=== PATIENT | female | born 1985 | race Caucasian/White ===

== ENCOUNTER 2017-02-06 09:05 | Emergency (ER) | payer SELFPAY ==
[~2017-02-06 09:05] MED LIST: CYCL-36 PO; FIORIC PO; GABA100C4 PO; HYDR-3129 PO; LORTA5 PO; MOBI15TA PO
[2017-02-06 09:08] VITALS: BP 155/95; PULSE 83; RESP 22; TEMP 98.5; O2SAT 98
--- NOTE | 2017-02-06 09:42 | PD ---
HPI Chief Complaint: Numbness/Tingling Time Seen by Provider: 09:23 Travel History International Travel<30 days: No Contact w/Intl Traveler<30days: No Traveled to known affect area: No History of Present Illness HPI The patient was seen and examined in the presence of the nurse. This patient has long-standing history of migraines. She gets 2-3 per week. Complains of migraine headache and has bilateral frontal throbbing. She also has nausea and had vomiting last night. No vomiting today. Denies fever or injury or thunderclap onset. It feels like her usual migraine. She also noted that she had some paresthesias in both hands and around her lips when she was hyperventilating from an anxiety attack. No muscle weakness or sensory loss. PFSH Past Medical History Arthritis: Yes Anxiety: Yes Depression: Yes Heart Rhythm Problems: Yes (Guy) Cancer: No Cardiovascular Problems: Yes (CARDIOLGY CONSULT RUNNING AMITANIKIADEN) High Cholesterol: Yes Diminished Hearing: No Genitourinary: Yes Headaches: Yes Implanted Vascular Access Dvce: No Kidney Stones: Yes Musculoskeletal: Yes (BACK INJURY) Neurologic: Yes Respiratory: No Immunizations Current: Yes Migraines: Yes ?: Not LMP: 1 WEEK : 2 Para: 1 Miscarriage: 1 : 0 Ovarian Cysts: Yes Past Surgical History Abdominal Surgery: Yes Section: Yes Gynecologic Surgery: Yes Hysterectomy: Yes Other Surgery: Yes (2011 C SECTION) Social History Alcohol Use: No Tobacco Use: Yes (07/14 PPD) Substance Use: No Allergies-Medications (Allergen,Severity, Reaction): Coded Allergies: Cipro (Verified Allergy, Severe, 02/06/17) Had to be hospitalized Red Dyes - Various (Verified Allergy, Severe, ANXIETY, 02/06/17) Reglan (Verified Allergy, Severe, Rash, 02/06/17) CAUSES ANXIETY WELL Rocephin (Verified Allergy, Severe, HIVES, 02/06/17) Imitrex (Verified Allergy, Mild, Nausea/Vomiting, 02/06/17) Uncoded Allergies: MAXALT (Adverse Reaction, Mild, BIGEMINY, 10/15/14) Reported Meds & Prescriptions Reported Meds & Active Scripts Active No Active Prescriptions or Reported Medications Review of Systems General / Constitutional: No: Fever Eyes: No: Visual changes HENT: Positive: Headaches Cardiovascular: No: Chest Pain or Discomfort Respiratory: No: Shortness of Breath Gastrointestinal: Positive: Nausea, Vomiting, No: Abdominal Pain Genitourinary: No: Dysuria Musculoskeletal: No: Pain Skin: No Rash Neurologic: Positive: Paresthesia, No: Weakness Psychiatric: No: Depression Endocrine: No: Polydipsia Hematologic/Lymphatic: No: Easy Bruising Physical Exam Narrative GENERAL: Well-nourished, well-developed patient in no apparent distress. SKIN: Focused skin assessment reveals no rash and nodules. Skin is Warm and dry. HEAD: Atraumatic. Normocephalic. EYES: Pupils equal and round. No scleral icterus. No injection or drainage. ENT: No nasal bleeding or discharge. Mucous membranes pink and moist. NECK: Trachea midline. No JVD. No meningeal signs CARDIOVASCULAR: Regular rate and rhythm. No murmur appreciated. RESPIRATORY: No accessory muscle use. Clear to auscultation. Breath sounds equal bilaterally. GASTROINTESTINAL: Abdomen soft, non-tender, nondistended. Hepatic and splenic margins not palpable. MUSCULOSKELETAL: No obvious deformities. No clubbing. No cyanosis. No edema. NEUROLOGICAL: Awake and alert. No obvious cranial nerve deficits. Motor grossly within normal limits. Normal speech. PSYCHIATRIC: Appropriate mood and affect; insight and judgment normal. Data Data Last Documented VS Vital Signs Date Time Temp Pulse Resp B/P Pulse Ox O2 Delivery O2 Flow Rate FiO2 02/06/17 09:08 98.5 83 22 155/95 98 Orders Ondansetron Inj (Zofran Inj) (02/06/17 09:45) Morphine Inj (Morphine Inj) (02/06/17 09:45) [facility] Medical Decision Making Medical Screen Exam Complete: Yes Emergency Medical Condition: Yes Medical Record Reviewed: Yes Differential Diagnosis Differential diagnosis includes migraine, tension headache, cluster headache, meningitis. Narrative Course I have reviewed the patient's electronic medical record. Patient is neurologically intact. Her presentation is not consistent with subarachnoid hemorrhage or meningitis. I gave her injection of morphine and Zofran. Prescriptions for Phenergan and Tylenol with codeine written Diagnosis Primary Impression: Migraine headache Qualified Code: G43.009 - Migraine without aura and without status migrainosus , not intractable Additional Impression: Paresthesia of both hands Additional Instructions: The patient was advised to follow up with their physician and return if they worsen. The patient was warned about potential sedation for the medications they will receive on prescription. Med/Other Pt SpecificInfo: Prescription(s) given Scripts No Active Prescriptions or Reported Meds Disposition: 01 DISCHARGE HOME Condition: Stable Duc Canseco MD Feb 06, 2017 09:42
[2017-02-06] MEDS ORDERED: PROM25TA10 PO (09:43)
[2017-02-06] MEDS ORDERED: TYLETAB34 PO (09:43)
[2017-02-06] MEDS ORDERED: MORPHINE SULFATE 4 MG/ML INJ IM ONE (09:45)
[2017-02-06] MEDS ORDERED: ONDANSETRON HCL 4 MG/2 ML VIAL IM ONE (09:45)
== END 2017-02-06 11:10 | disposition home or self-care (01) ==
LOC: PHED 09:05
DX: G43.909 Migraine, unspecified, not intractable, without status migrainosus (principal); R20.2 Paresthesia of skin; E78.00 Pure hypercholesterolemia, unspecified; F17.200 Nicotine dependence, unspecified, uncomplicated; Z87.39 Personal history of other diseases of the musculoskeletal system and connective tissue; Z86.59 Personal history of other mental and behavioral disorders; Z86.79 Personal history of other diseases of the circulatory system; Z87.448 Personal history of other diseases of urinary system; Z86.69 Personal history of other diseases of the nervous system and sense organs
CPT/HCPCS: 96372; 99284; J2270; J2405

== ENCOUNTER 2017-07-09 20:42 | Emergency (ER) | payer SELFPAY ==
[~2017-07-09] VITALS: Ht 170.2 cm; Wt 92.8 kg
[~2017-07-09 20:42] MED LIST changes: -CYCL-36 PO; -FIORIC PO; -GABA100C4 PO; -HYDR-3129 PO; -LORTA5 PO; -MOBI15TA PO; +PROM25TA10 PO; +TYLETAB34 PO
[2017-07-09] MEDS ORDERED: IOHEXOL 350 MG/ML 10 ML VIAL (for RAD DIAG) IVCONTRAST ONE (20:43)
[2017-07-09 20:45] VITALS: BP 168/71; PULSE 73; RESP 18; TEMP 97.9; O2SAT 98
[2017-07-09] MEDS ORDERED: SODIUM CHLOR 0.9% 1000 ML INJ 1,000 ML IV SCH (20:59)
[2017-07-09] MEDS ORDERED: ONDANSETRON HCL 4 MG/2 ML VIAL IV PUSH ONE (21:00)
[2017-07-09] MEDS ORDERED: MORPHINE SULFATE 2 MG/ML INJ IV PUSH ONE (21:00)
[2017-07-09] MEDS ORDERED: KETOROLAC TROMETHAMINE 30 MG/ML (IVP) VIAL IV PUSH ONE (21:00)
[2017-07-09] MEDS ORDERED: SODIUM CHLORIDE 0.9% FLUSH 10 ML FLUSH IV FLUSH PRN (21:00)
--- NOTE | 2017-07-09 21:05 | PD ---
HPI Chief Complaint: Poker Dealer Problem/Complaint Time Seen by Provider: 20:59 Travel History International Travel<30 days: No Contact w/Intl Traveler<30days: No Traveled to known affect area: No History of Present Illness HPI 31-year-old female with history of migraines, menorrhagia, here for evaluation of heavy uterine bleeding, right lower quadrant abdominal pain, and migraine headache. Menstrual period started 2 days ago and the patient was experiencing cramping at that time. When she woke up this point she began having severe right lower quadrant abdominal pain that has been persistent throughout the day today, worse with movements, radiates to the rest of her abdomen. She has felt nauseous and has had a few sips of vomiting. No diarrhea. History of section. No other abdominal surgeries. History of ovarian cysts. Pain described as sharp/pressure. She denies urinary symptoms. No fevers or chills. Patient also reports history of migraine headaches, and states that she is having a headache similar to previous migraines that started 2 days ago as well. Headache is mainly on the right side of her head and described as pressure, moderate. States that she is in the middle of a divorce and cannot be . PFSH Past Medical History Arthritis: Yes Anxiety: Yes Depression: Yes Heart Rhythm Problems: Yes (Zaina) Cancer: No Cardiovascular Problems: Yes (CARDIOLGY CONSULT RUNNING ZAINA) High Cholesterol: Yes Diminished Hearing: No Genitourinary: Yes Headaches: Yes Implanted Vascular Access Dvce: No Kidney Stones: Yes Musculoskeletal: Yes (BACK INJURY) Neurologic: Yes Respiratory: No Immunizations Current: Yes Migraines: Yes ?: Not LMP: 07/09/17 : 2 Para: 1 Miscarriage: 1 : 0 Ovarian Cysts: Yes Past Surgical History Abdominal Surgery: Yes Section: Yes Gynecologic Surgery: Yes Hysterectomy: Yes Other Surgery: Yes (2011 C SECTION) Social History Alcohol Use: No Tobacco Use: Yes (1/2 PPD) Substance Use: No Allergies-Medications (Allergen,Severity, Reaction): Coded Allergies: ceftriaxone (Verified Allergy, Severe, HIVES, 07/09/17) ciprofloxacin (Verified Allergy, Severe, 07/09/17) Had to be hospitalized metoclopramide (Verified Allergy, Severe, Rash, 07/09/17) CAUSES ANXIETY WELL red dye (Verified Allergy, Severe, ANXIETY, 07/09/17) sumatriptan (Verified Allergy, Mild, Nausea/Vomiting, 07/09/17) Uncoded Allergies: MAXALT (Adverse Reaction, Mild, BIGEMINY, 10/15/14) Reported Meds & Prescriptions Reported Meds & Active Scripts Active Review of Systems Except as stated in HPI: all other systems reviewed are Neg Physical Exam Narrative GENERAL: Well-developed, well-nourished, comfortable, no apparent distress. SKIN: Focused skin assessment warm/dry. HEAD: Atraumatic. Normocephalic. EYES: Pupils equal and round. No scleral icterus. No injection or drainage. ENT: Mucous membranes pink and moist. NECK: Trachea midline. No JVD. No nuchal rigidity. CARDIOVASCULAR: Regular rate and rhythm. RESPIRATORY: No accessory muscle use. Clear to auscultation. Breath sounds equal bilaterally. GASTROINTESTINAL: Abdomen soft, nondistended. Moderate right lower quadrant tenderness without hurting no signs. Rest of abdomen is mildly tender. Normal bowel sounds. MUSCULOSKELETAL: No obvious deformities. No clubbing. No cyanosis. No edema. NEUROLOGICAL: Awake and alert. No obvious cranial nerve deficits. Motor grossly within normal limits. Normal speech. PSYCHIATRIC: Appropriate mood and affect; insight and judgment normal. Data Data Last Documented VS Vital Signs Date Time Temp Pulse Resp B/P (MAP) Pulse Ox O2 Delivery O2 Flow Rate FiO2 07/09/17 22:33 67 16 116/72 (87) 98 Room Air 07/09/17 20:45 97.9 Orders Orders Complete Blood Count With Diff (07/09/17 20:59) Comprehensive Metabolic Panel (07/09/17 20:59) Prothrombin Time / Inr (Pt) (07/09/17 20:59) Act Partial Throm Time (Ptt) (07/09/17 20:59) Urinalysis - C+S If Indicated (07/09/17 20:59) Ct Abd/Pel W Iv Contrast(Rout) (07/09/17 20:59) Iv Access Insert/Monitor (07/09/17 20:59) Ecg Monitoring (07/09/17 20:59) Oximetry (07/09/17 20:59) Sodium Chlor 0.9% 1000 Ml Inj (Ns 1000 M (07/09/17 20:59) Sodium Chloride 0.9% Flush (Ns Flush) (07/09/17 21:00) Ed Urine Pregnancytest Poc (07/09/17 20:59) Morphine Inj (Morphine Inj) (07/09/17 21:00) Ondansetron Inj (Zofran Inj) (07/09/17 21:00) Ketorolac Inj (Toradol Inj) (07/09/17 21:00) Gc And Chlamydia Pcr (07/09/17 20:59) Type And Screen (07/09/17 20:59) Wet Prep Profile (07/09/17 20:59) Us Pelvis Comp W Doppler (07/09/17 20:59) Iohexol 350 Inj (Omnipaque 350 Inj) (07/09/17 20:43) Hydromorphone Pf Inj (Dilaudid Pf Inj) (07/09/17 22:30) Us Abdomen Gallbladder (07/09/17 ) Labs Laboratory Tests Test 07/09/17 21:05 07/09/17 21:15 07/09/17 23:20 Urine Color YELLOW Urine Turbidity CLEAR Urine pH 6.0 Urine Specific [place] 1.023 Urine Protein NEG mg/dL Urine Glucose (UA) NEG mg/dL Urine Ketones NEG mg/dL Urine Occult Blood NEG Urine Nitrite NEG Urine Bilirubin NEG Urine Leukocyte Esterase NEG Urine RBC 0-3 /hpf Urine WBC 3-5 /hpf Urine Squamous Epithelial Cells 0-5 /hpf Microscopic Urinalysis Comment CULT NOT INDICATED White Blood Count 10.5 TH/MM3 Red Blood Count 4.90 MIL/MM3 Hemoglobin 14.6 GM/DL Hematocrit 44.8 % Mean Corpuscular Volume 91.5 FL Mean Corpuscular Hemoglobin 29.8 PG Mean Corpuscular Hemoglobin Concent 32.6 % Red Cell Distribution Width 12.1 % Platelet Count 321 TH/MM3 Mean Platelet Volume 8.1 FL Neutrophils (%) (Auto) 60.6 % Lymphocytes (%) (Auto) 30.0 % Monocytes (%) (Auto) 5.2 % Eosinophils (%) (Auto) 3.7 % Basophils (%) (Auto) 0.5 % Neutrophils # (Auto) 6.4 TH/MM3 Lymphocytes # (Auto) 3.1 TH/MM3 Monocytes # (Auto) 0.5 TH/MM3 Eosinophils # (Auto) 0.4 TH/MM3 Basophils # (Auto) 0.1 TH/MM3 CBC Comment DIFF FINAL Differential Comment Prothrombin Time 10.1 SEC Prothromb Time International Ratio 1.0 RATIO Activated Partial Thromboplast Time 25.0 SEC Blood Urea Nitrogen 13 MG/DL Creatinine 0.73 MG/DL Random Glucose 92 MG/DL Total Protein 7.3 GM/DL Albumin 4.0 GM/DL Calcium Level 9.1 MG/DL Alkaline Phosphatase 66 U/L Aspartate Amino Transf (AST/SGOT) 8 U/L Alanine Aminotransferase (ALT/SGPT) 8 U/L Total Bilirubin 0.3 MG/DL Sodium Level 139 MEQ/L Potassium Level 3.6 MEQ/L Chloride Level 109 MEQ/L Carbon Dioxide Level 25.1 MEQ/L Anion Gap 5 MEQ/L Estimat Glomerular Filtration Rate 92 ML/MIN Clue Cells (Wet Prep) NONE SEEN Vaginal Trichomonas (Wet Prep) NONE SEEN Vaginal Yeast (Wet Prep) NONE SEEN MDM Medical Decision Making Medical Screen Exam Complete: Yes Emergency Medical Condition: Yes Medical Record Reviewed: Yes Differential Diagnosis Menorrhagia, dysfunctional uterine bleeding, ovarian cyst, ovarian torsion, ectopic , UTI, cystitis, appendicitis, colitis, migraine headache, tension headache, cluster headache, SAH/meningitis/encephalitis less likely Narrative Course Vital signs show heart rate 73, blood pressure 168/71, pulse ox 98% on room air , oral temp of 97.9F. CBC: WBC 10.5, hemoglobin 14.6, hematocrit 44.8, platelets 321. CMP is unremarkable. UA is within normal limits, not suggestive of UTI. Wet prep is negative for yeast, negative for clue cells, negative for Trichomonas. CT abdomen pelvis: CONCLUSION: Dilated gallbladder. Nonobstructing right kidney stones. Pelvic ultrasound: CONCLUSION: 1.1 cm rounded echogenic focus in the left ovary could represent a complex cyst or calcification. Ovaries are symmetric with normal color Doppler flow. Right upper quadrant ultrasound: CONCLUSION: 1. Sludge in the gallbladder with mildly asymmetrically thickened wall. No shadowing calculi identified. 2. Mildly dilated common duct measuring 7 mm. No filling defects identified in the common duct. The patient was made aware of all findings. After receiving Toradol, 4 mg of IV morphine, and a milligram of IV Dilaudid, her pain is under control. Headache is completely resolved. She still has some mild abdominal pain, however this is mainly located over the right lower quadrant. There are no peritoneal signs on exam. She has mild right upper quadrant tenderness, negative Ross sign. She has tried a copy of her pelvic ultrasound and right upper quadrant ultrasound. I did offer to admit her for intractable pain and possibly be evaluated by general surgery team regarding her distended gallbladder with sludge/biliary colic, however the patient prefers to be discharged home and follow-up as an outpatient. I also advised that she follow- up with an BANK MANAGER physician this week regarding her left ovarian calcification versus cyst. Patient does report having intermittent episodes of biliary colic after eating greasy foods. Today her pain is mainly lower and she is having some heavier than usual vaginal bleeding and is more likely related to menstrual cramps. Plan is to start her on Provera for this. I will also give her prescription for pain medication and antiemetics. She was informed on when to return to the emergency department patient verbalizes understanding and agreement with plan. Diagnosis Primary Impression: Menorrhagia Qualified Codes: N92.0 - Excessive and frequent menstruation with regular cycle Additional Impressions: Menstrual cramps Biliary colic Ovarian cyst Qualified Codes: N83.202 - Unspecified ovarian cyst, left side Migraine headache Qualified Codes: G43.909 - Migraine, unspecified, not intractable, without status migrainosus Referrals: Paul Garcia MD 3 days General surgeon [place]utter 3 days Primary Care Physician 3 days Additional Instructions: Follow-up with a primary care physician this week. Follow-up with general surgeon Dr. Garcia or a general surgeon of your choice this week. Follow-up with your agricultural engineering technologist this week. Return to the emergency department for worsening symptoms or any other concerns as discussed. Scripts Promethazine (Phenergan) 25 Mg Tablet 25 MG PO Q6H Y for NAUSEA OR VOMITING, #20 TAB 0 Refills Prov: Vijay Pinzon MD 07/09/17 Oxycodone-Acetaminophen (Percocet) 5-325 mg Tab 1 TAB PO Q6H Y for PAIN, #15 TAB 0 Refills Prov: Vijay Pinzon MD 07/09/17 Medroxyprogesterone Acetate (Provera) 10 Mg Tab 10 MG PO DAILY for Uterine bleeding, #10 TAB 0 Refills Start day 16 Prov: Vijay Pinzon MD 07/09/17 Disposition: 01 DISCHARGE HOME Condition: Stable Vijay Pinzon MD Jul 09, 2017 21:05
[2017-07-09 21:17] LABS: BILIRUBIN, URINE NEG (NEG); BLOOD, URINE NEG (NEG); GLUCOSE,URINE NEG (NEG); KETONE, URINE NEG (NEG); NITRITE,URINE NEG (NEG); URINE LEUKOCYTE ESTERASE NEG (NEG)
[2017-07-09 21:21] LABS: URINE COLOR YELLOW (YELLW/STRAW)
[2017-07-09 21:23] LABS: RBC, URINE 0-3 /hpf (0-3); SQUAMOUS EPITHELIAL CELL URINE 0-5 /hpf (0-5)
[2017-07-09 21:34] LABS: AUTOMATED NEUTROPHIL # 6.4 TH/MM3 (1.8-7.7); BASOPHIL # 0.1 TH/MM3 (0-0.2); BASOPHIL % 0.5 % (0.0-2.0); EOSINOPHIL # 0.4 TH/MM3 (0-0.4); EOSINOPHIL % 3.7 % (0.0-4.0); HEMATOCRIT 44.8 % (35.0-46.0); HEMOGLOBIN 14.6 GM/DL (11.6-15.3); LYMPHOCYTE # 3.1 TH/MM3 (1.0-4.8); MEAN CELL VOLUME 91.5 FL (80.0-100.0); MEAN CORPUSCULAR HEMOGLOBIN 29.8 PG (27.0-34.0); MEAN CORPUSCULAR HGB CONC 32.6 % (32.0-36.0); MEAN PLATELET VOLUME 8.1 FL (7.0-11.0); MONO % 5.2 % (0.0-8.0); MONOCYTE # 0.5 TH/MM3 (0-0.9); NEUT % 60.6 % (16.0-70.0); PLATELET COUNT 321 TH/MM3 (150-450); RED CELL DISTRIBUTION WIDTH 12.1 % (11.6-17.2); WHITE BLOOD COUNT 10.5 TH/MM3 (4.0-11.0)
[2017-07-09 21:36] LABS: CHLORIDE 109 MEQ/L (98-107); SODIUM (NA) 139 MEQ/L (136-145)
[2017-07-09 21:39] LABS: CALCIUM 9.1 MG/DL (8.5-10.1)
[2017-07-09 21:40] LABS: BICARBONATE 25.1 MEQ/L (21.0-32.0); BLOOD UREA NITROGEN 13 MG/DL (7-18); GLUCOSE,RANDOM 92 MG/DL (74-106)
[2017-07-09 21:42] LABS: PROTHROMBIN TIME - PATIENT 10.1 SEC (9.8-11.6)
[2017-07-09 21:43] LABS: ALT (GPT) 8 U/L (10-53); AST (GOT) 8 U/L (15-37); CREATININE 0.73 MG/DL (0.50-1.00); GLOMERULAR FILTRATION RATE 92 ML/MIN (>89)
[2017-07-09 21:44] LABS: TOTAL BILIRUBIN ADULT 0.3 MG/DL (0.2-1.0)
[2017-07-09 21:45] LABS: TOTAL PROTEIN 7.3 GM/DL (6.4-8.2)
[2017-07-09 21:46] LABS: ALKALINE PHOSPHATASE 66 U/L (45-117)
--- NOTE | 2017-07-09 22:27 | RADRPT ---
EXAM DATE/TIME: 07/09/2017 21:45 [facility] COMPARISON: No previous studies available for comparison. INDICATIONS : right sided pelvic pain with heavy menstural bleeding, IV CONTRAST: 96 cc Omnipaque 350 (iohexol) IV ORAL CONTRAST: No oral contrast ingested. RADIATION DOSE: 15.15 CTDIvol (mGy) MEDICAL HISTORY : Renal calculi. SURGICAL HISTORY : section. ENCOUNTER: Initial ACUITY: 2 days PAIN SCALE: 8/10 LOCATION: Right pelvis TECHNIQUE: Volumetric scanning of the abdomen and pelvis was performed. Using automated exposure control and ad justment of the mA and/or kV according to patient size, radiation dose was kept as low as reasonably achievable to obtain optimal diagnostic quality images. DICOM format image data is available electro nically for review and comparison. FINDINGS: LOWER LUNGS: The visualized lower lungs are clear. LIVER: Homogeneous density without lesion. There is no dilation of the biliary tree. Moderately dilated gal lbladder. No definite stones. SPLEEN: Normal size without lesion. PANCREAS: Within normal limits. KIDNEYS: Small nonobstructing stones in the mid and lower pole collecting system of the right kidney. Left kid jay is unremarkable. No hydronephrosis. ADRENAL GLANDS: Within normal limits. VASCULAR: There is no aortic aneurysm. BOWEL/MESENTERY: The stomach, small bowel, and colon demonstrate no acute abnormality. There is no free intraperitone al air or fluid. ABDOMINAL WALL: Within normal limits. RETROPERITONEUM: There is no lymphadenopathy. BLADDER: No wall thickening or mass. REPRODUCTIVE: Within normal limits. INGUINAL: There is no lymphadenopathy or hernia. MUSCULOSKELETAL: Within normal limits for patient age. CONCLUSION: Dilated gallbladder. Nonobstructing right kidney stones. Jorge Tellez MD on July 09, 2017 at 22:22 Board Certified Radiologist. This report was verified electronically.
[2017-07-09] MEDS ORDERED: HYDROmorphone HCL PF 2 MG/ML VIAL IV PUSH ONE (22:30)
[2017-07-09 22:32] VITALS: O2SAT 98
[2017-07-09 22:33] VITALS: BP 116/72; PULSE 67; RESP 16; O2SAT 98
--- NOTE | 2017-07-09 23:22 | RADRPT ---
EXAM DATE/TIME: 07/09/2017 22:27 [facility] COMPARISON: No previous studies available for comparison. INDICATIONS : Pelvic pain and bleeding. MEDICAL HISTORY : Hypercholesterolemia. Renal calculi. Arthritis. Migraines. Bigemeny. Ovarian cysts. Back injury. Depr ession. Anxiety. SURGICAL HISTORY : section. Left knee surgery. ENCOUNTER: Initial ACUITY: 1 day PAIN SCORE: 7/10 LOCATION: Bilateral pelvis MEASUREMENTS: UTERUS: 8.0 x 5.0 x 3.6 cm ENDOMETRIAL STRIPE: 9 mm RIGHT OVARY: 2.3 x 2.4 x 2.4 cm LEFT OVARY: 2.3 x 2.6 x 2.6 cm FREE FLUID: No FINDINGS: UTERUS: The myometrium has homogeneous echotexture without mass. RIGHT OVARY: Ovary contains no mass or significant cystic lesion. LEFT OVARY: Nonspecific 1.1 cm rounded echogenic focus in the left ovary. Of doubtful clinical significance. Norm al color Doppler flow and size. MISCELLANEOUS: No free fluid. CONCLUSION: 1.1 cm rounded echogenic focus in the left ovary could represent a complex cyst or calcification. Ova cris are symmetric with normal color Doppler flow. Diallo Vickers MD on July 09, 2017 at 23:18 Board Certified Radiologist. This report was verified electronically.
--- NOTE | 2017-07-09 23:27 | RADRPT ---
EXAM DATE/TIME: 07/09/2017 22:41 [facility] COMPARISON: US ABDOMEN - GALLBLADDER, July 28, 2014, 14:06. INDICATIONS : Right upper quadrant pain. MEDICAL HISTORY : Hypercholesterolemia. Renal calculi. Arthritis. Migraines. Bigemeny. Ovarian cysts. Back injury. Depr ession. Anxiety. SURGICAL HISTORY : section. Left knee surgery. ENCOUNTER: Initial ACUITY: 1 day PAIN SCORE: 7/10 LOCATION: Right upper quadrant MEASUREMENTS: LIVER: 18.0 cm length COMMON DUCT: 7 mm RIGHT KIDNEY: 12.0 x 5.3 x 4.0 cm FINDINGS: LIVER: Normal echotexture without focal lesion or ductal dilatation. COMMON DUCT: No intraluminal mass or stone visualized. GALLBLADDER: Sludge is seen layering in the gallbladder. Mild asymmetric gallbladder wall thickening up to 5 mm. N o pericholecystic fluid. PANCREAS: The visualized portions are within normal limits. RIGHT KIDNEY: No evidence of hydronephrosis, stone, or mass. CONCLUSION: 1. Sludge in the gallbladder with mildly asymmetrically thickened wall. No shadowing calculi identifi ed. 2. Mildly dilated common duct measuring 7 mm. No filling defects identified in the common duct. Diallo Vickers MD on July 09, 2017 at 23:21 Board Certified Radiologist. This report was verified electronically.
[2017-07-09] MEDS ORDERED: medroxyPROGESTERone ACETATE 10 MG TAB PO ONE (23:45)
[2017-07-09] MEDS ORDERED: PROM25TA10 PO (23:46)
[2017-07-09] MEDS ORDERED: PERC5TAB12 PO (23:46)
[2017-07-09] MEDS ORDERED: PROV10TA PO (23:46)
[2017-07-10 00:30] VITALS: BP 117/68; PULSE 70; RESP 18; O2SAT 99
[2017-07-10 00:33] VITALS: BP 117/68
== END 2017-07-10 00:35 | disposition home or self-care (01) ==
LOC: PHED 20:42
DX: N92.0 Excessive and frequent menstruation with regular cycle (principal); N94.6 Dysmenorrhea, unspecified; K80.50 Calculus of bile duct without cholangitis or cholecystitis without obstruction; N83.202 Unspecified ovarian cyst, left side; G43.909 Migraine, unspecified, not intractable, without status migrainosus; Z72.0 Tobacco use
CPT/HCPCS: 74177; 76705; 76856; 80053; 81001; 84703; 85025; 85610; 85730; 86850; 86900; 86901; 87210; 87491; 87591; 93975; 96361; 96374; 96375; 99285; J1170; J1885; J2270; J2405; J7030; Q9967

== ENCOUNTER 2017-08-24 07:48 | Emergency (ER) | payer MEDICAID ==
[~2017-08-24] VITALS: Ht 171.4 cm; Wt 90.5 kg
[~2017-08-24 07:48] MED LIST changes: +PERC5TAB12 PO; +PROV10TA PO; -TYLETAB34 PO
[2017-08-24 07:55] VITALS: BP 119/77; PULSE 99; RESP 16; TEMP 98.3; O2SAT 99
[2017-08-24] MEDS ORDERED: KETOROLAC TROMETHAMINE 30 MG/ML (IVP) VIAL IV PUSH ONE (08:15)
--- NOTE | 2017-08-24 08:27 | PD ---
HPI . Headache Chief Complaint: Headache Time Seen by Provider: 08:04 Travel History International Travel<30 days: No Contact w/Intl Traveler<30days: No Traveled to known affect area: No History of Present Illness HPI Patient presents with chief complaint of headache. Onset was 9:00 last night. Pain is throbbing and is behind her eyes. It is associated with nausea and vomiting. It has been unrelieved by Excedrin and cold compresses. She has a long-standing history of similar headaches. She denies any fever or cold symptoms. No blurred vision. PFSH Past Medical History Arthritis: Yes Anxiety: Yes Depression: Yes Heart Rhythm Problems: Yes ([employer]) Cancer: No Cardiovascular Problems: Yes ([email or web address]) High Cholesterol: Yes Diminished Hearing: No Genitourinary: Yes Headaches: Yes Implanted Vascular Access Dvce: No Kidney Stones: Yes Musculoskeletal: Yes (BACK INJURY, left knee surgery) Neurologic: Yes Respiratory: No Immunizations Current: Yes Migraines: Yes ?: Not LMP: 08/03/2017 : 2 Para: 1 Miscarriage: 1 : 0 Ovarian Cysts: Yes Past Surgical History Abdominal Surgery: Yes Section: Yes Gynecologic Surgery: Yes Hysterectomy: Yes Other Surgery: Yes (2011 C SECTION) Social History Alcohol Use: No Tobacco Use: Yes (07/14 PPD) Substance Use: No Allergies-Medications (Allergen,Severity, Reaction): Coded Allergies: ceftriaxone (Verified Allergy, Severe, HIVES, 08/24/17) ciprofloxacin (Verified Allergy, Severe, 08/24/17) Had to be hospitalized metoclopramide (Verified Allergy, Severe, Rash, 08/24/17) CAUSES ANXIETY WELL red dye (Verified Allergy, Severe, ANXIETY, 08/24/17) rizatriptan (Verified Allergy, Intermediate, BIGEMINY, 08/24/17) sumatriptan (Verified Allergy, Mild, Nausea/Vomiting, 08/24/17) Reported Meds & Prescriptions Reported Meds & Active Scripts Active No Active Prescriptions or Reported Medications Review of Systems Except as stated in HPI: all other systems reviewed are Neg General / Constitutional: No: Fever, Chills Eyes: No: Blurred Vision HENT: Positive: Headaches Gastrointestinal: Positive: Nausea, Vomiting Physical Exam Narrative GENERAL: Awake and alert and in no acute distress. SKIN: Warm and dry. HEAD: Normocephalic/atraumatic. Positive scalp tenderness. EYES: Pupils are equal. Extraocular movements are intact. NECK: Normal range of motion. Supple. CARDIOVASCULAR: Regular rate and rhythm. RESPIRATORY: Nonlabored respirations. MUSCULOSKELETAL: Atraumatic. NEUROLOGICAL: A and O 3. Cranial nerves II through XII are grossly intact. [employer] strengths are full and equal. No history or exam is intact. Gait is normal. PSYCHIATRIC: Appropriate mood and affect. Data Data Last Documented VS Vital Signs Date Time Temp Pulse Resp B/P (MAP) Pulse Ox O2 Delivery O2 Flow Rate FiO2 08/24/17 07:55 98.3 99 16 119/77 (91) 99 Orders Orders ^ Saline Lock (08/24/17 08:09) Ketorolac Inj (Toradol Inj) (08/24/17 08:15) MDM Medical Decision Making Medical Screen Exam Complete: Yes Emergency Medical Condition: Yes Medical Record Reviewed: Yes (this patient has had previous presentations for migraines. She has multiple drug allergies including Reglan and triptaons (due to cardiac dysrhythmia).) Differential Diagnosis Differential diagnosis of headache includes but is not limited to migraine, muscle contraction headache, brain tumor, brain bleed Narrative Course Patient presents with chief complaint of headache. Onset last night. Unrelieved by Excedrin ankle compresses. She has some drug allergies which will alter possible therapy. She also drove herself to the hospital. I will start with Toradol. If that is ineffective, I will proceed to IV lidocaine. This patient has reported to her nurse that she would like prescriptions for [place] and Phenergan. I have explained to the patient that I do not prescribe narcotics for headaches. She has requested Fioricet. I have agreed to give her a few Fioricet along with Phenergan. She should see her primary care physician for ongoing treatment of her chronic headaches. Diagnosis Primary Impression: Migraine headache Qualified Codes: G43.009 - Migraine without aura, not intractable, without status migrainosus Additional Instructions: See your primary care physician or neurologist for ongoing treatment of her chronic headaches. It is not the practice of the Emergency Department to prescribe narcotics for chronic pain conditions. Scripts Chujdjubfq-Ymydqrpaslqft-Xemgqczj (Fioricet) 50-300-40 Mg Cap 1 CAP PO Q4H Y for HEADACHE, #10 CAP 0 Refills Prov: Hanny Barkley MD 08/24/17 Promethazine (Phenergan) 25 Mg Tablet 25 MG PO Q6H Y for NAUSEA OR VOMITING, #20 TAB 0 Refills Prov: Hanny Barkley MD 08/24/17 Disposition: 01 DISCHARGE HOME Condition: Stable Hanny Barkley MD Aug 24, 2017 08:27
[2017-08-24] MEDS ORDERED: BUTA1CAP PO (08:54)
[2017-08-24] MEDS ORDERED: PROM25TA10 PO (08:54)
== END 2017-08-24 09:25 | disposition home or self-care (01) ==
LOC: PHED 07:48
DX: G43.009 Migraine without aura, not intractable, without status migrainosus (principal); R11.2 Nausea with vomiting, unspecified; E78.00 Pure hypercholesterolemia, unspecified; F17.200 Nicotine dependence, unspecified, uncomplicated; Z87.39 Personal history of other diseases of the musculoskeletal system and connective tissue; Z86.59 Personal history of other mental and behavioral disorders; Z86.79 Personal history of other diseases of the circulatory system; Z87.448 Personal history of other diseases of urinary system; Z86.69 Personal history of other diseases of the nervous system and sense organs; Z87.42 Personal history of other diseases of the female genital tract
CPT/HCPCS: 96374; 99284; J1885

== ENCOUNTER 2017-08-31 08:23 | Emergency (ER) | payer MEDICAID ==
[~2017-08-31] VITALS: Ht 170.2 cm; Wt 90.0 kg
[~2017-08-31 08:23] MED LIST changes: +BUTA1CAP PO; -PERC5TAB12 PO; -PROV10TA PO
[2017-08-31 08:29] VITALS: BP 118/72; PULSE 88; RESP 16; TEMP 98.5; O2SAT 100
[2017-08-31] MEDS ORDERED: ONDANSETRON HCL 4 MG/2 ML VIAL IV PUSH ONE (09:30)
[2017-08-31] MEDS ORDERED: MORPHINE SULFATE 2 MG/ML INJ IV PUSH ONE (09:30)
[2017-08-31 09:32] LABS: BASOPHIL # 0.1 TH/MM3 (0-0.2); BASOPHIL % 0.7 % (0.0-2.0); EOSINOPHIL # 0.3 TH/MM3 (0-0.4); EOSINOPHIL % 2.9 % (0.0-4.0); HEMOGLOBIN 14.1 GM/DL (11.6-15.3); LYMPH % 16.1 % (9.0-44.0); LYMPHOCYTE # 1.9 TH/MM3 (1.0-4.8); MEAN CELL VOLUME 90.3 FL (80.0-100.0); MEAN CORPUSCULAR HEMOGLOBIN 30.3 PG (27.0-34.0); MEAN CORPUSCULAR HGB CONC 33.6 % (32.0-36.0); MEAN PLATELET VOLUME 8.1 FL (7.0-11.0); MONO % 2.6 % (0.0-8.0); MONOCYTE # 0.3 TH/MM3 (0-0.9); NEUT % 77.7 % (16.0-70.0); PLATELET COUNT 329 TH/MM3 (150-450); RED BLOOD COUNT 4.66 MIL/MM3 (4.00-5.30); RED CELL DISTRIBUTION WIDTH 12.2 % (11.6-17.2); WHITE BLOOD COUNT 11.6 TH/MM3 (4.0-11.0)
--- NOTE | 2017-08-31 09:38 | PD ---
HPI Chief Complaint: Abdominal Pain Time Seen by Provider: 09:04 Travel History International Travel<30 days: No Contact w/Intl Traveler<30days: No Traveled to known affect area: No History of Present Illness HPI 31-year-old female here for evaluation of right upper quadrant abdominal pain, right flank pain, nausea, vomiting, fevers, and chills. Symptoms started yesterday at around 7:00 PM after eating a salad with chicken. She was seen in June 2017 in the emergency department by me with similar symptoms and states that her pain feels very similar. At that time she was diagnosed with a distended gallbladder, gallbladder sludge, biliary colic, intrarenal stones. She has not followed up as an outpatient for these findings. Currently the pain is 6 out of 10, sharp, starts in her right upper quadrant and radiates to her right flank, constant, worse with movements. No history of abdominal surgeries. No history of IVDU. No urinary symptoms. PFSH Past Medical History Arthritis: Yes Anxiety: Yes Depression: Yes Heart Rhythm Problems: Yes ([place]y) Cancer: No Cardiovascular Problems: Yes (BIGEMENY) High Cholesterol: Yes Diminished Hearing: No Genitourinary: Yes Headaches: Yes Implanted Vascular Access Dvce: No Kidney Stones: Yes Musculoskeletal: Yes (BACK INJURY, left knee surgery) Neurologic: Yes Respiratory: No Immunizations Current: Yes Migraines: Yes ?: Not LMP: 08/10/2017 : 2 Para: 1 Miscarriage: 1 : 0 Ovarian Cysts: Yes Past Surgical History Abdominal Surgery: Yes Section: Yes Gynecologic Surgery: Yes Hysterectomy: Yes Other Surgery: Yes (2011 C SECTION) Social History Alcohol Use: No Tobacco Use: Yes (07/14 PPD) Substance Use: No Allergies-Medications (Allergen,Severity, Reaction): Coded Allergies: ceftriaxone (Verified Allergy, Severe, HIVES, 08/31/17) ciprofloxacin (Verified Allergy, Severe, 08/31/17) Had to be hospitalized red dye (Verified Allergy, Severe, ANXIETY, 08/31/17) rizatriptan (Verified Allergy, Intermediate, BIGEMINY, 08/31/17) sumatriptan (Verified Allergy, Mild, Nausea/Vomiting, 08/31/17) metoclopramide (Verified Allergy, Unknown, PT DENIES, 08/31/17) Reported Meds & Prescriptions Reported Meds & Active Scripts Active No Active Prescriptions or Reported Medications Review of Systems Except as stated in HPI: all other systems reviewed are Neg Physical Exam Narrative GENERAL: Well-developed, well-nourished, comfortable, no apparent distress. SKIN: Focused skin assessment warm/dry. No rash. HEAD: Atraumatic. Normocephalic. EYES: Pupils equal and round. No scleral icterus. No injection or drainage. ENT: Mucous membranes pink and moist. NECK: Trachea midline. No JVD. CARDIOVASCULAR: Regular rate and rhythm. No murmur appreciated. RESPIRATORY: No accessory muscle use. Clear to auscultation. Breath sounds equal bilaterally. GASTROINTESTINAL: Abdomen soft, nondistended. Mild right upper quadrant tenderness without peritoneal signs. Normal bowel sounds. MUSCULOSKELETAL: No obvious deformities. No clubbing. No cyanosis. No edema. Mild right CVA tenderness. No left CVA tenderness. No midline vertebral step- off or tenderness. NEUROLOGICAL: Awake and alert. No obvious cranial nerve deficits. Motor grossly within normal limits. Normal speech. PSYCHIATRIC: Appropriate mood and affect; insight and judgment normal. Data Data Last Documented VS Vital Signs Date Time Temp Pulse Resp B/P (MAP) Pulse Ox O2 Delivery O2 Flow Rate FiO2 08/31/17 10:07 100 08/31/17 08:40 16 08/31/17 08:29 98.5 88 118/72 (87) Orders Orders Complete Blood Count With Diff (08/31/17 08:51) Comprehensive Metabolic Panel (08/31/17 08:51) Lipase (08/31/17 08:51) Lactic Acid (08/31/17 08:51) Prothrombin Time / Inr (Pt) (08/31/17 08:51) Act Partial Throm Time (Ptt) (08/31/17 08:51) Urinalysis - C+S If Indicated (08/31/17 08:51) Iv Access Insert/Monitor (08/31/17 08:51) Ecg Monitoring (08/31/17 08:51) Oximetry (08/31/17 08:51) Ed Urine Pregnancytest Poc (08/31/17 08:51) Ct Abd/Pel W Iv Contrast(Rout) (08/31/17 09:25) Us Abdomen Gallbladder (08/31/17 ) Morphine Inj (Morphine Inj) (08/31/17 09:30) Ondansetron Inj (Zofran Inj) (08/31/17 09:30) Sodium Chlor 0.9% 1000 Ml Inj (Ns 1000 M (08/31/17 09:45) Urine Culture (08/31/17 08:30) Iohexol 350 Inj (Omnipaque 350 Inj) (08/31/17 10:29) Hydromorphone Pf Inj (Dilaudid Pf Inj) (08/31/17 10:45) Labs Laboratory Tests Test 08/31/17 08:30 White Blood Count 11.6 TH/MM3 Red Blood Count 4.66 MIL/MM3 Hemoglobin 14.1 GM/DL Hematocrit 42.0 % Mean Corpuscular Volume 90.3 FL Mean Corpuscular Hemoglobin 30.3 PG Mean Corpuscular Hemoglobin Concent 33.6 % Red Cell Distribution Width 12.2 % Platelet Count 329 TH/MM3 Mean Platelet Volume 8.1 FL Neutrophils (%) (Auto) 77.7 % Lymphocytes (%) (Auto) 16.1 % Monocytes (%) (Auto) 2.6 % Eosinophils (%) (Auto) 2.9 % Basophils (%) (Auto) 0.7 % Neutrophils # (Auto) 9.0 TH/MM3 Lymphocytes # (Auto) 1.9 TH/MM3 Monocytes # (Auto) 0.3 TH/MM3 Eosinophils # (Auto) 0.3 TH/MM3 Basophils # (Auto) 0.1 TH/MM3 CBC Comment DIFF FINAL Differential Comment Prothrombin Time 10.3 SEC Prothromb Time International Ratio 1.0 RATIO Activated Partial Thromboplast Time 25.4 SEC Urine Color YELLOW Urine Turbidity CLEAR Urine pH 6.0 Urine Specific [place] 1.020 Urine Protein NEG mg/dL Urine Glucose (UA) NEG mg/dL Urine Ketones NEG mg/dL Urine Occult Blood TRACE Urine Nitrite NEG Urine Bilirubin NEG Urine Leukocyte Esterase NEG Urine RBC 3-5 /hpf Urine WBC 0-2 /hpf Urine Squamous Epithelial Cells 6-8 /hpf Urine Bacteria MOD /hpf Microscopic Urinalysis Comment CULTURE INDICATED Blood Urea Nitrogen 12 MG/DL Creatinine 0.75 MG/DL Random Glucose 96 MG/DL Total Protein 8.1 GM/DL Albumin 4.1 GM/DL Calcium Level 9.2 MG/DL Alkaline Phosphatase 79 U/L Aspartate Amino Transf (AST/SGOT) 11 U/L Alanine Aminotransferase (ALT/SGPT) 16 U/L Total Bilirubin 0.5 MG/DL Sodium Level 138 MEQ/L Potassium Level 4.0 MEQ/L Chloride Level 108 MEQ/L Carbon Dioxide Level 22.4 MEQ/L Anion Gap 8 MEQ/L Estimat Glomerular Filtration Rate 89 ML/MIN Lactic Acid Level 0.7 mmol/L Lipase 111 U/L [facility] Medical Decision Making Medical Screen Exam Complete: Yes Emergency Medical Condition: Yes Differential Diagnosis Biliary colic, cholecystitis, nephrolithiasis, ureterolithiasis, pyelonephritis , cholangitis, choledocholithiasis, peptic ulcer disease, pancreatitis Narrative Course Initial vital signs show heart rate 88, blood pressure 118/72, pulse ox 100% on room air, oral temp of 98.5F. CBC: WBC 11.6, hemoglobin 14.1, hematocrit 42, platelets 329, neutrophils 77.7%. CMP is unremarkable. Lipase is 111. Lactic Acid 0.7. UA: 6-8 epithelial cells, moderate bacteria, negative nitrites, negative leukocyte esterase. CT abdomen pelvis: CONCLUSION: 1. There are 2 punctate nonobstructing stones within the right kidney. 2. There is a small umbilical hernia with omental fat herniated into the defect. 3. The examination is otherwise within normal limits. Right upper quadrant ultrasound: CONCLUSION: 1. Hepatic steatosis. Otherwise, unremarkable exam. Patient was made aware of all findings. She was given a dose of morphine as well as 1 mg of IV Dilaudid and on reassessment she is very comfortable on her cell phone. She will be started on Bactrim for her bacteriuria. I will also give her prescription for Bentyl. She is requesting something stronger for pain. I will give her a few Lortab, but advised that she needs to follow-up with a primary care physician as well as a new vehicle sales consultant this week. She was informed on when to return to the emergency department. She is stable for discharge home with outpatient follow-up. She verbalizes understanding and agreement with plan. Diagnosis Primary Impression: Right upper quadrant abdominal pain Additional Impressions: Bacteriuria Hepatic steatosis Referrals: Edel Cuellar MD 3 days Primary Care Physician 3 days Additional Instructions: Follow-up with a primary care physician this week. Follow-up with new vehicle sales consultant Dr. Cuellar this week. Return to the emergency department for worsening symptoms or any other concerns. Scripts Sulfamethoxazole-Trimethoprim (Bactrim DS) 800-160 Mg Tab 1 TAB PO BID for Infection, #6 TAB 0 Refills Prov: Vijay Pinzon MD 08/31/17 Hydrocodone-Acetaminophen (Hydrocodone-Acetaminophen) 5-325 mg Tab 1 TAB PO Q6H Y for PAIN, #6 TAB 0 Refills Prov: Vijay Pinzon MD 08/31/17 Disposition: 01 DISCHARGE HOME Condition: Stable Vijay Pinzon MD Aug 31, 2017 09:38
[2017-08-31 09:40] LABS: BILIRUBIN, URINE NEG (NEG); BLOOD, URINE TRACE (NEG); GLUCOSE,URINE NEG (NEG); KETONE, URINE NEG (NEG); NITRITE,URINE NEG (NEG); URINE LEUKOCYTE ESTERASE NEG (NEG)
[2017-08-31] MEDS ORDERED: SODIUM CHLOR 0.9% 1000 ML INJ 1,000 ML IV ONE (09:45)
[2017-08-31 09:47] LABS: PROTHROMBIN TIME - PATIENT 10.3 SEC (9.8-11.6)
[2017-08-31 09:56] LABS: BACTERIA, URINE MOD /hpf; URINE COLOR YELLOW (YELLW/STRAW); WBC, URINE 0-2 /hpf (0-5)
[2017-08-31 10:07] VITALS: O2SAT 100
[2017-08-31] MEDS ORDERED: IOHEXOL 350 MG/ML 10 ML VIAL (for RAD DIAG) IVCONTRAST ONE (10:29)
[2017-08-31] MEDS ORDERED: HYDROmorphone HCL PF 2 MG/ML VIAL IV PUSH ONE (10:45)
[2017-08-31 10:51] LABS: CHLORIDE 108 MEQ/L (98-107); SODIUM (NA) 138 MEQ/L (136-145)
[2017-08-31 10:54] LABS: CALCIUM 9.2 MG/DL (8.5-10.1)
[2017-08-31 10:55] LABS: ALBUMIN 4.1 GM/DL (3.4-5.0); BICARBONATE 22.4 MEQ/L (21.0-32.0); BLOOD UREA NITROGEN 12 MG/DL (7-18); GLUCOSE,RANDOM 96 MG/DL (74-106)
[2017-08-31 10:58] LABS: ALT (GPT) 16 U/L (10-53); AST (GOT) 11 U/L (15-37); CREATININE 0.75 MG/DL (0.50-1.00); GLOMERULAR FILTRATION RATE 89 ML/MIN (>89)
[2017-08-31 10:59] LABS: TOTAL BILIRUBIN ADULT 0.5 MG/DL (0.2-1.0); TOTAL PROTEIN 8.1 GM/DL (6.4-8.2)
[2017-08-31 11:01] LABS: ALKALINE PHOSPHATASE 79 U/L (45-117)
--- NOTE | 2017-08-31 11:05 | RADRPT ---
EXAM DATE/TIME: 08/31/2017 10:19 [facility] COMPARISON: CT ABDOMEN & PELVIS W CONTRAST, July 09, 2017, 21:45. INDICATIONS : Right upper quadrant pain. IV CONTRAST: 90 cc Omnipaque 350 (iohexol) IV ORAL CONTRAST: No oral contrast ingested. RADIATION DOSE: 19.32 CTDIvol (mGy) MEDICAL HISTORY : Cardiovascular disease. Bigeminy. SURGICAL HISTORY : section. ENCOUNTER: Initial ACUITY: 2 days PAIN SCALE: 8/10 LOCATION: Right upper quadrant TECHNIQUE: Volumetric scanning of the abdomen and pelvis was performed. Using automated exposure control and ad justment of the mA and/or kV according to patient size, radiation dose was kept as low as reasonably achievable to obtain optimal diagnostic quality images. DICOM format image data is available electro nically for review and comparison. FINDINGS: LOWER LUNGS: The visualized lower lungs are clear. LIVER: Homogeneous density without lesion. There is no dilation of the biliary tree. No calcified gallston es. SPLEEN: Normal size without lesion. PANCREAS: Within normal limits. KIDNEYS: The examination demonstrates 2 punctate nonobstructing stones within the right kidney. The left kidne y is normal in appearance. ADRENAL GLANDS: Within normal limits. VASCULAR: There is no aortic aneurysm. BOWEL/MESENTERY: The stomach, small bowel, and colon demonstrate no acute abnormality. There is no free intraperitone al air or fluid. ABDOMINAL WALL: There is a very small umbilical hernia. There is some omental fat herniating through the defect. RETROPERITONEUM: There is no lymphadenopathy. BLADDER: No wall thickening or mass. REPRODUCTIVE: Within normal limits. INGUINAL: There is no lymphadenopathy or hernia. MUSCULOSKELETAL: Within normal limits for patient age. CONCLUSION: 1. There are 2 punctate nonobstructing stones within the right kidney. 2. There is a small umbilical hernia with omental fat herniated into the defect. 3. The examination is otherwise within normal limits. Victor Hugo Conway MD on August 31, 2017 at 11:01 Board Certified Radiologist. This report was verified electronically.
--- NOTE | 2017-08-31 12:38 | RADRPT ---
EXAM DATE/TIME: 08/31/2017 11:46 [facility] COMPARISON: US ABDOMEN - GALLBLADDER, July 09, 2017, 22:41. INDICATIONS : Right upper quadrant pain. MEDICAL HISTORY : Hypercholesterolemia. Bigemeny. Ovarian cysts. Renal calculi. Arthritis. SURGICAL HISTORY : Hysterectomy. section. Left knee surgery. ENCOUNTER: Initial ACUITY: 2 days PAIN SCORE: 7/10 LOCATION: Right upper quadrant MEASUREMENTS: LIVER: 18.1 cm length COMMON DUCT: 5 mm RIGHT KIDNEY: 12.3 x 5.1 x 4.8 cm FINDINGS: LIVER: The liver is diffusely echogenic. No mass or ductal dilatation. The common bile duct is in the normal range for size. COMMON DUCT: No intraluminal mass or stone visualized. GALLBLADDER: Contains no stones, demonstrates no wall thickening or pericholecystic fluid. PANCREAS: The visualized portions are within normal limits. RIGHT KIDNEY: No evidence of hydronephrosis, stone, or mass. CONCLUSION: 1. Hepatic steatosis. Otherwise, unremarkable exam. Fernando Monahan Jr., MD on August 31, 2017 at 12:34 Board Certified Radiologist. This report was verified electronically.
[2017-08-31] MEDS ORDERED: HYDR-3516 PO (12:51)
[2017-08-31] MEDS ORDERED: BACT800T5 PO (12:51)
[2017-08-31 13:39] VITALS: BP 128/70
== END 2017-08-31 13:41 | disposition home or self-care (01) ==
LOC: PHED 08:23
DX: R10.11 Right upper quadrant pain (principal); R82.71 Bacteriuria; K76.0 Fatty (change of) liver, not elsewhere classified; F41.9 Anxiety disorder, unspecified; F32.9 Major depressive disorder, single episode, unspecified; E78.00 Pure hypercholesterolemia, unspecified; F17.200 Nicotine dependence, unspecified, uncomplicated
CPT/HCPCS: 74177; 76705; 80053; 81001; 83605; 83690; 84703; 85025; 85610; 85730; 87086; 96361; 96374; 96375; 99284; J1170; J2270; J2405; J7030; Q9967